=== PATIENT | female | born 1975 | race Caucasian/White ===

== ENCOUNTER 2021-03-03 10:56 | Emergency (ER) | payer SELFPAY ==
[~2021-03-03] VITALS: Ht 162.6 cm; Wt 65.8 kg
--- NOTE | 2021-03-03 11:23 | ED Back Pain ---
General Chief Complaint: Back Problems Stated Complaint: BACK PAIN Source of Information: Patient Exam Limitations: No Limitations History of Present Illness Date Seen by Provider: Mar 03, 2021 Time Seen by Provider: 11:04 Initial Comments 45yoF otherwise healthy coming in due to having L flank pain radiating to the other side starting 1 week ago but worsening yesterday at 10pm. Pain is 10/10 intermittent stabbing. Had an episode of NB/NB vomiting x1. Tried tylenol with little relief. Similar episode years ago which was a kidney stone. Denies dysuria, burning, but does have some urinary urgency without blood. Allergies and Home Medications Allergies Coded Allergies: No Known Drug Allergies (Unverified , 03/03/21) Patient Home Medication List Home Medication List Reviewed: Yes Review of Systems Constitutional: No chills, No fever EENTM: No blurred vision Respiratory: No cough, No short of breath Cardiovascular: No chest pain Gastrointestinal: No abdominal pain; nausea, vomiting Genitourinary: No dysuria; frequency : No Musculoskeletal: back pain Skin: no symptoms reported Psychiatric/Neurological: No Symptoms Reported All Other Systems Reviewed Negative Unless Noted: Yes Past Ainzpkq-Zufibm-Dvxqga Hx Patient Social History Tobacco Use?: No Substance use?: No Alcohol Use?: No Past Medical History Surgeries: Yes Hysterectomy Physical Exam Vital Signs Vital Signs - First Documented 03/03/21 11:04 Temp 36.5 Pulse 91 Resp 18 B/P (MAP) 138/101 (113) O2 Delivery Room Air Capillary Refill : Height, Weight, BMI Height: '" Weight: lbs. oz. kg; BMI Method: General Appearance: No Apparent Distress, Mild Distress HEENT: PERRL/EOMI, Normal ENT Inspection, Pharynx Normal Neck: Full Range of Motion, Normal Inspection, Non Tender, Supple Cardiovascular: Regular Rate, Rhythm, No Murmur, Normal Peripheral Pulses Respiratory: Chest Non Tender, Lungs Clear, Normal Breath Sounds, No Accessory Muscle Use, No Respiratory Distress Gastrointestinal: Normal Bowel Sounds, Non Tender, Soft; No Distended, No Guarding Back: Normal Inspection, No Vertebral Tenderness, CVA Tenderness (L), CVA Tenderness (R), Other (negative straight leg test) Extremity: Normal Capillary Refill, Normal Inspection, Normal Range of Motion, Non Tender, No Calf Tenderness, No Pedal Edema Neurologic/Psychiatric: Alert, No Motor/Sensory Deficits, Normal Mood/Affect Skin: Normal Color, Warm/Dry Lymphatic: No Adenopathy Progress/Results/Core Measures Results/Orders Lab Results Laboratory Tests Test 03/03/21 11:06 03/03/21 11:50 Range/Units Urine Color YELLOW Urine Clarity CLOUDY H Urine pH 5.5 5-9 Urine Specific [place] >=1.030 1.016-1.022 Urine Protein NEGATIVE NEGATIVE Urine Glucose (UA) NEGATIVE NEGATIVE Urine Ketones TRACE H NEGATIVE Urine Nitrite NEGATIVE NEGATIVE Urine Bilirubin 1+ H NEGATIVE Urine Urobilinogen 0.2 < = 1.0 MG/DL Urine Leukocyte Esterase TRACE H NEGATIVE Urine RBC (Auto) TRACE NEGATIVE Urine RBC 2-5 H /HPF Urine WBC 2-5 /HPF Urine Squamous Epithelial Cells 10-25 H /HPF Urine Crystals NONE /LPF Urine Bacteria MODERATE H /HPF Urine Casts NONE /LPF Urine Mucus LARGE H /LPF Urine Culture Indicated NO My Orders Orders - MARCELA NGUYEN MD Ct Abdomen/Pelvis Wo (03/03/21 11:27) Cbc With Automated Diff (03/03/21 11:27) Comprehensive Metabolic Panel (03/03/21 11:27) Ua Culture If Indicated (03/03/21 11:27) Ondansetron Injection (Zofran Injectio (03/03/21 11:30) Ed Iv/Invasive Line Start (03/03/21 11:27) Fentanyl Inj (Sublimaze Injection) (03/03/21 11:27) Ketorolac Injection (Toradol Injection) (03/03/21 11:27) Medications Given in ED Current Medications Medications Dose Ordered Sig/Blaze Route Start Time Stop Time Status Last Admin Dose Admin Ondansetron HCl 4 mg ONCE ONCE IVP 03/03/21 11:30 03/03/21 11:31 DC 03/03/21 11:53 4 MG Vital Signs/I&O 03/03/21 11:04 Temp 36.5 Pulse 91 Resp 18 B/P (MAP) 138/101 (113) O2 Delivery Room Air Progress Progress Note : Progress Note 45-year-old female with above history coming in due to left flank pain. ABCs were intact and vitals were stable on presentation. Physical exam with left leg pain but no other abnormalities. She has had a hysterectomy and is not . An IV was placed and she was given fentanyl as well as Toradol for pain control. She was also given Zofran for nausea. This significantly helped with the pain. Differential includes ureterolithiasis versus pyelonephritis versus vascular cause vs msk such as sciatica versus some other etiology. Much less likely dissection or AAA rupture given age, lack of risk factors, and the pain has been ongoing for the past week. No red flags for low back pain including no neuro deficits and no bowel/bladder incontinence, no trauma, no IVDU, not diabetic, no h/o cancer, or any other concerns. CT abdomen and pelvis without contrast ordered which was negative for hydronephrosis or kidney stone. She does have a thickened bladder wall concerning for cystitis. Urinalysis does have some whites in it, leukocyte Estrace, and bacteria. Given her urinary frequency I would consider this positive for cystitis. She will be given a co urse of cefdinir with the first dose here. Given the flank pain it still possible she has early pyelonephritis which the cefdinir should cover for as well. Possibility that this is more musculoskeletal in regards to the flank pain and will still recommend taking NSAIDs. Labs otherwise reassuring and I believe she is stable for discharge. She was sent home with strict return pre cautions Departure Impression Primary Impression: Flank pain Additional Impression: Cystitis Disposition: 01 HOME, SELF-CARE Condition: Stable Departure-Patient Inst. Patient Instructions: Acute Cystitis (DC), Flank Pain (DC) Add. Discharge Instructions: You are seen in the emergency department for left flank pain with nausea. It does look like your bladder is infected, and sometimes the infection can backtrack to the kidney which can cause symptoms similar to what you have. Antibiotics we gave you should cover for this. Also still possible this is musculoskeletal in nature. I recommend scheduling 600 mg of ibuprofen every 6 hours for the next couple days. You can also try heating pad. Be sure to drink plenty of fluids. I sent a prescription for a muscle relaxer as well which will sedate you so be sure not to drive when taking this. If you have any fevers, inability to urinate, weakness on one side of your body, numbness on one side of your body, or any other concerns and please come back to the ER. Scripts Cyclobenzaprine HCl (Cyclobenzaprine HCl) 10 Mg Tablet 10 MG PO Q8H PRN for SPASMS for 5 Days, #15 TAB 0 Refills Prov: MARCELA NGUYEN MD 03/03/21 Cefdinir (Cefdinir) 300 Mg Capsule 300 MG PO BID for 7 Days, #14 CAP 0 Refills Prov: MARCELA NGUYEN MD 03/03/21 MACRELA NGUYEN MD Mar 03, 2021 11:23
[2021-03-03] MEDS ORDERED: KETOROLAC 30 MG/ML VIAL IVP STA (11:27)
[2021-03-03] MEDS ORDERED: fentaNYL INJ 100 MCG/2 ML AMP IVP STA (11:27)
[2021-03-03] MEDS ORDERED: ONDANSETRON 4 MG/2 ML (SDV) Z0FRAN IVP ONE (11:30)
--- NOTE | 2021-03-03 12:12 | Diagnostic Imaging Report ---
PROCEDURE: CT abdomen and pelvis without contrast. TECHNIQUE: Multiple contiguous axial images were obtained through the abdomen and pelvis without the use of intravenous contrast. Auto Exposure Controls were utilized during the CT exam to meet ALARA standards for radiation dose reduction. INDICATION: Back and flank pain. COMPARISON: None. FINDINGS: The heart is unremarkable. The lung bases are clear. The liver, spleen, pancreas, adrenal glands, and kidneys have a normal appearance. The gallbladder is surgically absent. The common bile duct is prominent measuring 0.7 cm. There is no pathologically enlarged mesenteric or retroperitoneal adenopathy. A moderate hiatal hernia is present. The bowel loops are nondilated. Surgical clips are seen in the right lower quadrant likely representing prior appendectomy. There is no free fluid or free air. No acute osseous abnormalities. The urinary bladder is decompressed with concentric bladder wall thickening. There is no free air, loculated collection, or adenopathy in the pelvis. IMPRESSION: 1. No evidence of renal calculi or hydronephrosis. 2. Decompressed urinary bladder with bladder wall thickening. No bladder calculi. Findings may represent inadequate distention versus cystitis. Recommend correlation with UA. 3. Moderate hiatal hernia. Dictated by: Dictated on workstation # [id number]
[2021-03-03 12:17] LABS: BILIRUBIN,URINE 1+ (NEGATIVE); CLARITY,URINE CLOUDY; COLOR,URINE YELLOW; GLUCOSE, URINE (UA) NEGATIVE (NEGATIVE); KETONES,URINE TRACE (NEGATIVE); NITRITE,URINE NEGATIVE (NEGATIVE); PH,URINE 5.5 (5-9); PROTEIN,URINE NEGATIVE (NEGATIVE)
[2021-03-03 12:18] LABS: BACTERIA,URINE MODERATE /HPF; LEUKOCYTE ESTERASE ,URINE TRACE (NEGATIVE)
[2021-03-03 12:34] LABS: BASOPHILS % (AUTO) 1 % (0-10); EOSINOPHILS % (AUTO) 1 % (0-10); HEMATOCRIT 41 % (35-52); HEMOGLOBIN 13.9 g/dL (11.5-16.0); LYMPHOCYTES % (AUTO) 24 % (12-44); MEAN CORPUSCULAR HEMOGLOBIN 30 pg (25-34); MEAN CORPUSCULAR HGB CONC 34 g/dL (32-36); MEAN CORPUSCULAR VOLUME 89 fL (80-99); MEAN PLATELET VOLUME 11.5 fL (9.0-12.2); MONOCYTES % (AUTO) 6 % (0-12); NEUTROPHILS % (AUTO) 69 % (42-75); PLATELET COUNT 242 10^3/uL (130-400); WHITE BLOOD COUNT 7.6 10^3/uL (4.3-11.0)
[2021-03-03 12:35] LABS: BASOPHILS # (AUTO) 0.1 10^3/uL (0.0-0.1); LYMPHOCYTES # (AUTO) 1.8 X 10^3 (1.0-4.0); MONOCYTES # (AUTO) 0.4 X 10^3 (0.0-1.0); NEUTROPHILS # (AUTO) 5.2 X 10^3 (1.8-7.8)
[2021-03-03 12:36] LABS: ALANINE AMINOTRANSFERASE 33 U/L (0-55); ALBUMIN 4.6 GM/DL (3.2-4.5); ALKALINE PHOSPHATASE 144 U/L (40-136); BILIRUBIN,TOTAL 0.4 MG/DL (0.1-1.0); BUN/CREATININE RATIO 11; CALCIUM 9.5 MG/DL (8.5-10.1); CARBON DIOXIDE 25 MMOL/L (21-32); CHLORIDE 105 MMOL/L (98-107); CREATININE SERUM 0.92 MG/DL (0.60-1.30); GFR ESTIMATED 66; GLUCOSE 102 MG/DL (70-105); POTASSIUM 3.9 MMOL/L (3.6-5.0); SODIUM 142 MMOL/L (135-145)
[2021-03-03] MEDS ORDERED: CYCL10TA9 PO (12:37)
[2021-03-03] MEDS ORDERED: CEFD300C3 PO (12:37)
[2021-03-03] MEDS ORDERED: CEFDINIR 300 MG (OMNICEF) CAP PO ONE (12:45)
[2021-03-03 12:51] VITALS: BP 134/81
== END 2021-03-03 12:51 | disposition home or self-care (01) ==
LOC: ER FS 11:22
DX: N30.90 Cystitis, unspecified without hematuria (principal)
CPT/HCPCS: 36415; 74176; 80053; 81000; 85025